=== PATIENT | female | born 1945 | race African-American/Black ===

== ENCOUNTER 2016-12-22 16:44 | Emergency (ER) | payer MEDICARE, BC ==
[~2016-12-22] VITALS: Ht 160 cm; Wt 56.7 kg
[~2016-12-22 16:44] MED LIST: ACET325T9 PO; ASPI-482 PO; FENT1PAT17 TD; GABA-586 PO; GABA600T2 PO; LORA1TAB PO; OMEP20CA9 PO; OXYC10TA32 PO; ROPI1TAB PO; SERT100T PO
--- NOTE | 2016-12-22 17:18 | PHYS DOC ---
Past Medical History Past Medical History: Arthritis, GERD, Other Additional Past Medical Histor: Multiple Myeloma,Chemotherapy, cellulitis Past Surgical History: Knee Replacement, Other Additional Past Surgical Histo: Uterine prolapse,Stem Cell Transplant in 2013, cervical spinal stenosis Alcohol Use: None Drug Use: None Adult General Chief Complaint Chief Complaint: OTHER COMPLAINTS [facility] HPI Patient is a 71 year old -[place] African female who was in her normal state of health today until the noted increased weakness with difficulty walking. She is given a history of multiple myeloma and leukemia as required chemotherapy and radiation therapy and she's had stem cell transplant 2. That was some years ago and she has been seen and managed by her oncologist at [facility]. She typically does not have any issue ambulating other than for some muscle rigidity but noted this morning during some agitation that she had difficulty walking and sitting from a recumbent position to upright position. She admits to no change in medications, no changes in vision, no dysarthria, no arthralgia, no recent joint swelling, no shortness of breath, change chest pain, URI symptoms, fever, chills, headache, or other focal neurologic deficits. She globally feels weak any symptoms began this morning around 9 AM. She denies any pain, travel outside the country, recent antibiotics, UTI symptoms or changes in bowel or bladder habits. She has a history of bladder surgery, partially directly, stem cell transplant 2, prior neck surgery. Rahul Espitia primary care doctor, Dr. Bond is her oncologist. At . Assessment and plan is generalized weakness. Patient is well outside the window for TPA consideration given her symptoms but differential diagnosis includes stroke, anemia, hypercalcemia, electrolyte abdomen, acute coronary syndrome, dehydration, UTI, sepsis, pulmonary embolism, as well as competitions from leukemia. At this point I will order a CT of the head, chest x-ray, EKG with appropriate cardiac workup, ionized calcium level,mag level, CMP, CBC, and urinalysis. Review of Systems Review of Systems Constitutional: Denies fever or chills complains of generalized weakness Eyes: Denies change in visual acuity, redness, or eye pain [] HENT: Denies nasal congestion or sore throat [] Respiratory: Denies cough or shortness of breath [] Cardiovascular: No additional information not addressed in HPI [] GI: Denies abdominal pain, nausea, vomiting, bloody stools or diarrhea [] : Denies dysuria or hematuria [] Musculoskeletal: Denies back pain or joint pain [] Integument: Denies rash or skin lesions [] Neurologic: Denies headache, she generally feels weak Endocrine: Denies polyuria or polydipsia [] Current Medications Current Medications Current Medications Medications (Trade) Dose Ordered Sig/Deonte Start Time Stop Time Status Last Admin Dose Admin Magnesium Sulfate/ Dextrose 50 ml @ 25 mls/hr 1X ONCE 12/22/16 18:45 12/22/16 20:44 DC 12/22/16 19:22 25 MLS/HR Sodium Chloride 1,000 ml @ 1,000 mls/hr Q1H 12/22/16 17:30 12/22/16 18:29 DC 12/22/16 18:10 1,000 MLS/HR Sodium Chloride (Normal Saline Flush) 10 ml QSHIFT PRN 12/22/16 17:30 12/22/16 19:22 10 ML Allergies Allergies Allergies Coded Allergies Type Severity Reaction Last Updated Verified metoclopramide HCl Allergy Unknown 10/16/13 No Physical Exam Physical Exam A she noted to have a fever as well as tachycardia of 114 approprioate per for fever normotensive without hypoxia. Noted increased respiratory rate 22. Constitutional: Well developed, well nourished, patient has extensive tardive dyskinesia but is in no distress. HENT: Normocephalic, atraumatic, bilateral external ears normal, oropharynx moist, no oral exudates, nose normal. [] Eyes: PERRLA, EOMI, conjunctiva normal, no discharge. [] Neck: Normal range of motion, no tenderness, supple, no stridor. [] Cardiovascular:Heart rate regular rhythm, no murmur [] Lungs & Thorax: Bilateral breath sounds clear to auscultation [] Abdomen: Bowel sounds normal, soft, no tenderness, no masses, no pulsatile masses. [] Skin: Warm, dry, no erythema, no rash. [] Back: No tenderness, no CVA tenderness. [] Extremities: No tenderness, no cyanosis, no clubbing, ROM intact, no edema. [] Neurologic: Alert and oriented X 3, normal motor function, normal sensory function, no focal deficits noted. Patient has decreased range of motion at the left shoulder secondary to pain not weakness. Patient's NIH stroke scale is 0 at this time. Psychologic: Affect normal, judgement normal, mood normal. [] Current Patient Data Vital Signs Vital Signs Date Time Temp Pulse Resp B/P (MAP) Pulse Ox O2 Delivery O2 Flow Rate FiO2 12/22/16 17:11 100.9 123 22 153/69 (97) 94 Room Air 100.9 Lab Values Laboratory Tests Test 12/22/16 18:00 White Blood Count 11.4 x10^3/uL (4.0-11.0) H Red Blood Count 3.63 x10^6/uL (3.50-5.40) Hemoglobin 11.5 g/dL (12.0-15.5) L Hematocrit 35.0 % (36.0-47.0) L Mean Corpuscular Volume 96 fL (79-100) Mean Corpuscular Hemoglobin 32 pg (25-35) Mean Corpuscular Hemoglobin Concent 33 g/dL (31-37) Red Cell Distribution Width 13.8 % (11.5-14.5) Platelet Count 165 x10^3/uL (140-400) Neutrophils (%) (Auto) 83 % (31-73) H Lymphocytes (%) (Auto) 13 % (24-48) L Monocytes (%) (Auto) 4 % (0-9) Eosinophils (%) (Auto) 0 % (0-3) Basophils (%) (Auto) 0 % (0-3) Neutrophils # (Auto) 9.4 x10^3uL (1.8-7.7) H Lymphocytes # (Auto) 1.4 x10^3/uL (1.0-4.8) Monocytes # (Auto) 0.5 x10^3/uL (0.0-1.1) Eosinophils # (Auto) 0.0 x10^3/uL (0.0-0.7) Basophils # (Auto) 0.0 x10^3/uL (0.0-0.2) D-Dimer (Devora) 1.70 ug/mlFEU (0.00-0.50) H Urine Collection Type U cath Urine Color Yellow Urine Clarity Clear Urine pH 6.0 Urine Specific [place] 1.015 Urine Protein Negative mg/dL (NEG-TRACE) Urine Glucose (UA) Negative mg/dL (NEG) Urine Ketones (Stick) Negative mg/dL (NEG) Urine Blood Small (NEG) Urine Nitrite Negative (NEG) Urine Bilirubin Negative (NEG) Urine Urobilinogen Dipstick 0.2 mg/dL (0.2 mg/dL) Urine Leukocyte Esterase Negative (NEG) Urine RBC 6-10 /HPF (0-2) Urine WBC 1-4 /HPF (0-4) Urine Squamous Epithelial Cells Few /LPF Urine Bacteria 0 /HPF (0-FEW) Urine Mucus Mod /LPF Sodium Level 143 mmol/L (136-145) Potassium Level 3.6 mmol/L (3.5-5.1) Chloride Level 103 mmol/L (98-107) Carbon Dioxide Level 30 mmol/L (21-32) Anion Gap 10 (6-14) Blood Urea Nitrogen 10 mg/dL (7-20) Creatinine 0.7 mg/dL (0.6-1.0) Estimated GFR (Cockcroft-Gault) 100.4 BUN/Creatinine Ratio 14 (6-20) Glucose Level 88 mg/dL (70-99) Lactic Acid Level 1.2 mmol/L (0.4-2.0) Calcium Level 8.6 mg/dL (8.5-10.1) Ionized Calcium 1.17 mmol/L (1.13-1.32) Magnesium Level 1.6 mg/dL (1.8-2.4) L Total Bilirubin 0.4 mg/dL (0.2-1.0) Aspartate Amino Transferase (AST) 16 U/L (15-37) Alanine Aminotransferase (ALT) 22 U/L (14-59) Alkaline Phosphatase 56 U/L (46-116) Troponin I Quantitative < 0.017 ng/mL (0.000-0.055) XP-Qch-K-Type Natriuretic Peptide 42 pg/mL (0-124) Total Protein 8.0 g/dL (6.4-8.2) Albumin 3.6 g/dL (3.4-5.0) Albumin/Globulin Ratio 0.8 (1.0-1.7) L Laboratory Tests 12/22/16 18:00 Laboratory Tests 12/22/16 18:00 EKG EKG [] EKG timed imaging 1716 12/22/[address] Miller demonstrates sinus tachycardia rate 114 is P waves. QRS normal limits at 67 ms patient has not severe T wave flattening in lateral leads. Patient is no ST segment or T-wave changes consistent with ischemia. Radiology/Procedures Radiology/Procedures [] [address] [place] [address] IMAGING REPORT Signed PATIENT: GERMAINE SALAZAR ACCOUNT: [id number] : 1945 LOCATION: ER AGE: 71 SEX: F EXAM STATUS: REG ER ORD. PHYSICIAN: MAGO MILLER MD REASON: weakness PROCEDURE: CT HEAD WO CONTRAST INDICATION: weakness and muscle twitching today, no priors, hx multiple myeloma COMPARISON: None. TECHNIQUE: Axial CT images obtained through the head without intravenous contrast. One or more of the following individualized dose reduction techniques were utilized for this examination: 1. Automated exposure control; 2. Adjustment of the mA and/or kV according to patient size; 3. Use of iterative reconstruction technique. FINDINGS: No intracranial hemorrhage. No midline shift. Basal cisterns patents. Ventricles and sulci are globally prominent. No acute osseous abnormality. Orbits and paranasal sinuses unremarkable. Scattered foci of low attenuation within the white matter. IMPRESSION: 1. No acute intracranial hemorrhage. 2. Scattered regions of low attenuation within the white matter. Non-specific in nature but frequently secondary to small vessel ischemic disease. Other common causes include sequela of demyelination or migraine. If there is clinical concern for acute etiology MRI could better evaluate as to whether any of these foci are acute. 3. Prominence of ventricles and sulci which is frequently secondary to age related volume loss. Electronically signed by: Mauricio Sanchez MD (12/22/2016 5:54 PM) DICTATED and SIGNED BY: MAURICIO SANCHEZ MD DATE: 12/22/16 1750 CC: MAGO MILLER MD; RAHUL ESPITIA MD ~ [facility] [address] [place] [address] IMAGING REPORT Signed PATIENT: GERMAINE SALAZAR ACCOUNT: [id number] : 1945 LOCATION: ER AGE: 71 SEX: F EXAM STATUS: REG ER ORD. PHYSICIAN: MAGO MILLER MD REASON: weakness with dimer elevation not eligable for CTA chest PROCEDURE: LUNG VENT/PERFUSION SCAN(VQ) Indication: Weakness with elevated d-dimer Technique: Static images are obtained of both lungs following inhalation of 18 mCi xenon-133 and again following IV administration of 5 mCi of 99 M technetium MAA. Comparison: Chest x-ray from same day Findings: No definite mismatched defects that are worse on the perfusion when compared to the ventilation images. Patchy defects are seen both on the ventilation and perfusion images. Some of the defects are better seen on the oblique and lateral images. Impression: 1. Low probability of pulmonary embolus. Electronically signed by: Mauricio Sanchez MD (12/22/2016 9:54 PM) DICTATED and SIGNED BY: MAURICIO SANCHEZ MD DATE: 12/22/162150 CC: MAGO MILLER MD; RAHUL ESPITIA MD ~ Course & Med Decision Making Course & Med Decision Making Pertinent Labs and Imaging studies reviewed. (See chart for details) of the course the patient's evaluation the only abdomen mildly sound on laboratory work weren't elevated d-dimer which could represent a pulmonary most given her increased respiratory rate. Respiratory rate may be at normal baseline for her as she is deconditioned concerning her medical problems. So has low mag 1.6 which may or may not contributory symptoms almost no evidence of hypokalemia or hypocalcemia. She'll be placed here in the emergency department. At this point results were explained to family at the bedside at approximately 1820. Patient feels better after fluids in the emergency. His urinalysis demonstrates mild white blood cells and bacteria are also has a few epithelial cells and given generalized weakness of patient with increased movement abnormalities I will treat empirically as UTI. [] Patient tells me that their sumptoms given during CC are improved. We reviewed labs and radiology reports with patient and any family at bedside. At approximately 1930. Still waiting for VQ scan. Patient tells me that their sumptoms given during CC are improved. We reviewed labs and radiology reports with patient and any family at bedside. Patient is a little agitated at this time waiting for VQ scan to be completed times a proximally 8:40 PM patient was offered a meal fluids and her gabapentin. [facility] note: [facility] called at of the service internal medicine PCP Dr. Omkar patino initially at 1852 Consult called back at 1900 Discussed the case I presented and they agreed with disposition home provided VQ scan is normal the patient is feeling better and able to walk with assistance according to the . At this point VQ scan is no returned at approximately 10 PM patient will be discharged home with follow-up with her primary care doctor with generalized weakness debility Impression: Generalized weakness. Probable early UTI disposition PCP follow-up in 24-48 hours for weakness with no signs of stroke precautions given. Dragon Disclaimer Dragon Disclaimer This electronic medical record was generated, in whole or in part, using a voice recognition dictation system. Departure Departure Impression: Primary Impression: Weakness Additional Impression: UTI (urinary tract infection) Disposition: HOME, SELF-CARE Condition: IMPROVED Referrals: RAHUL ESPITIA MD (PCP) Patient Instructions: Urinary Tract Infection, Weakness Additional Instructions: These follow-up with your primary care doctor next 12-24 hours if your symptoms continue. Advise that you return immediately for any increased weakness generalized fatigue fevers greater than 102.2 despite treatment or if you any question concerns. Scripts Acetaminophen (TYLENOL) 325 Mg Tablet 1-2 TAB PO QID, #60 TAB 2 Refills Prov: MAGO MILLER MD 12/22/16 Ciprofloxacin Hcl (CIPRO) 500 Mg Tablet 1 TAB PO BID, #20 TAB Prov: MAGO MILLER MD 12/22/16 Problem Qualifiers MAGO MILLER MD Dec 22, 2016 17:18
[2016-12-22] MEDS ORDERED: IV NORMAL SALINE 1000ML BAG 1,000 ML IV SCH (17:30)
[2016-12-22] MEDS ORDERED: 0.9 % SODIUM CHLORIDE 10 ML DISP.SYRIN. IV PRN (17:30)
--- NOTE | 2016-12-22 17:57 | RAD ---
INDICATION: weakness and muscle twitching today, no priors, hx multiple myeloma COMPARISON: None. TECHNIQUE: Axial CT images obtained through the head without intravenous contrast. One or more of the following individualized dose reduction techniques were utilized for this examination: 1. Automated exposure control; 2. Adjustment of the mA and/or kV according to patient size; 3. Use of iterative reconstruction technique. FINDINGS: No intracranial hemorrhage. No midline shift. Basal cisterns patents. Ventricles and sulci are globally prominent. No acute osseous abnormality. Orbits and paranasal sinuses unremarkable. Scattered foci of low attenuation within the white matter. IMPRESSION: 1. No acute intracranial hemorrhage. 2. Scattered regions of low attenuation within the white matter. Non-specific in nature but frequently secondary to small vessel ischemic disease. Other common causes include sequela of demyelination or migraine. If there is clinical concern for acute etiology MRI could better evaluate as to whether any of these foci are acute. 3. Prominence of ventricles and sulci which is frequently secondary to age related volume loss. Electronically signed by: Candido Talavera MD (12/22/2016 5:54 PM)
[2016-12-22 18:07] LABS: BASO % 0 % (0-3); EOS % 0 % (0-3); HEMOGLOBIN 11.5 g/dL (12.0-15.5); LYMPH # 1.4 x10^3/uL (1.0-4.8); LYMPH % 13 % (24-48); MEAN CORPUSCULAR HEMOGLOBIN 32 pg (25-35); MEAN CORPUSCULAR HGB CONC 33 g/dL (31-37); MEAN CORPUSCULAR VOLUME 96 fL (79-100); MONO % 4 % (0-9); NEUT % 83 % (31-73); PLATELET COUNT 165 x10^3/uL (140-400); RED BLOOD COUNT 3.63 x10^6/uL (3.50-5.40); RED CELL DISTRIBUTION WIDTH 13.8 % (11.5-14.5); WHITE BLOOD COUNT 11.4 x10^3/uL (4.0-11.0)
[2016-12-22 18:19] LABS: BILIRUBIN,URINE NEGATIVE (NEG); GLUCOSE,URINE NEGATIVE (NEG); NITRITE,URINE NEGATIVE (NEG); PROTEIN,URINE NEGATIVE (NEG-TRACE); UROBILINOGEN,URINE 0.2 mg/dL (0.2 mg/dL)
[2016-12-22 18:24] LABS: CALCIUM 8.6 mg/dL (8.5-10.1); CREATININE 0.7 mg/dL (0.6-1.0); GFR 100.4; POTASSIUM 3.6 mmol/L (3.5-5.1)
[2016-12-22 18:29] LABS: BACTERIA,URINE 0 /HPF (0-FEW)
[2016-12-22 18:30] LABS: ALBUMIN 3.6 g/dL (3.4-5.0); ALBUMIN/GLOBULIN RATIO 0.8 (1.0-1.7); MAGNESIUM 1.6 mg/dL (1.8-2.4); SQUAMOUS EPITHELIAL CELL,UR FEW /LPF; TOTAL BILIRUBIN 0.4 mg/dL (0.2-1.0)
[2016-12-22] MEDS ORDERED: MAGNESIUM SULFATE 2GM 50 ML IV ONE (18:45)
[2016-12-22 21:00] VITALS: BP 146/69
--- NOTE | 2016-12-22 21:57 | RAD ---
Indication: Weakness with elevated d-dimer Technique: Static images are obtained of both lungs following inhalation of 18 mCi xenon-133 and again following IV administration of 5 mCi of 99 M technetium MAA. Comparison: Chest x-ray from same day Findings: No definite mismatched defects that are worse on the perfusion when compared to the ventilation images. Patchy defects are seen both on the ventilation and perfusion images. Some of the defects are better seen on the oblique and lateral images. Impression: 1. Low probability of pulmonary embolus. Electronically signed by: Candido Talavera MD (12/22/2016 9:54 PM)
[2016-12-22] MEDS ORDERED: ACET325T9 PO (22:12)
[2016-12-22] MEDS ORDERED: CIPR500T94 PO (22:12)
--- NOTE | 2016-12-23 06:08 | EKG ---
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
--- NOTE | 2016-12-23 08:23 | RAD ---
Exam: AP portable chest. History: Weakness. Multiple myeloma. Comparison: 10/17/2013. Findings: The heart and mediastinal structures are within normal limits for size. Lungs are without infiltrate. No pneumothorax or pleural effusion is appreciated. Right chest port and catheter are unchanged. Right greater than left shoulder degeneration is present. S-shaped scoliosis of the thoracic and upper lumbar spine is seen. Impression: 1. No acute cardiopulmonary process.
== END 2016-12-22 22:15 | disposition home or self-care (01) ==
LOC: ER 16:44
DX: R53.1 Weakness (principal); N39.0 Urinary tract infection, site not specified; R45.1 Restlessness and agitation; M19.90 Unspecified osteoarthritis, unspecified site; Z88.8 Allergy status to other drugs, medicaments and biological substances
CPT/HCPCS: 36415; 70450; 71010; 78582; 80053; 81001; 82310; 83605; 83735; 83880; 84484; 85027; 85379; 87040; 93005; 96361; 96365; 96366; 99285; A9540; A9558; J7030; J7060; 96374

== ENCOUNTER → 2017-04-11 | Day surgery (SDC) | payer MEDICARE, BC ==
[~2017-04-11] MED LIST changes: +CIPR500T94 PO; +FENT1PAT19 TP; +GLUC100018 PO; +IV RINGERS,LACTATED 1000ML 1,000 ML IV SCH; +MULT1TAB52 PO; -OXYC10TA32 PO; +OXYC10TA45 PO; +OXYC5CAP PO; +POTA10CA2 PO; +PROPOFOL 20 ML IV ONE; +TYLENOL ARTHRITIS
--- NOTE | 2017-04-11 10:07 | PDOC1 ---
HISTORY & PHYSICAL H&P Lauren Noe [id number] 1945 03/24/2017 01:50 PM 07/24 [employer] [facility], [facility] [address] [place] [address] Ph. [phone] Patient: Lauren Noe Date of : 1945 Date: 03/24/2017 1:50 PM Visit Type: Consult This 72 year old female presents for Diarrhea and H/o colorectal polyp. History of Present Illness: 1. Diarrhea The patient describes it as loose and watery. Pertinent negatives include abdominal pain, nausea, vomiting and weight loss. Additional information: Has episodes of diarrhea. No rectal bleeding. No fever. 2. H/o colorectal polyp Prior screening: colonoscopy. Risk Factors: colon polyp 2007. Associated symptoms include diarrhea. Pertinent negatives include abdominal pain, change in bowel habits, change in stool caliber, constipation, decreased appetite, melena, nausea, rectal bleeding, vomiting, weight gain and weight loss. Additional information: No family history of colon cancer, No family history of Crohn's/colitis, No NSAID/ASA use and Had colon polyp in 2007. INTAKE COMMENTS: Intake Comments: Nurse Note: the pt is here today with complaints of diarrhea, the pt's last colonoscopy was in 2007 and she had polyps at that time. 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, bilateral 04/21/2016 Diarrhea, unspecified type 03/08/2016 Restless legs 05/27/2014 Status post total left knee replacement 05/29/2015 Chronic pain 01/30/2013 Multiple myeloma 07/20/2012 Osteoarthritis 08/22/2014 Tendinitis of left shoulder 08/25/2015 Spondylosis of lumbar region without myelopathy or radiculopathy 08/25/2015 Major depressive disorder with single episode, in partial remission 02/16/2016 Peripheral neuropathy due to chemotherapy 07/28/2015 Pain 08/11/2015 Multiple myeloma in remission 11/05/2009 Degenerative joint disease involving multiple joints 11/05/2009 Idiopathic peripheral neuropathy 11/05/2009 Periodic limb movement disorder 06/12/2012 Hyperlipidemia 10/01/2010 PAST MEDICAL/SURGICAL HISTORY (Detailed) Disease/disorder Onset Date Management Date Comments Bilateral tubal ligation cervical diskectomy 2010 Arthrocentesis of the left shoulder joint Anxiety cellulitis of finger 2010 Depression GERD Hyperlipidemia NEC/NOS hypertension multiple myeloma Multiple myeloma, in remission Osteoarthritis osteoarthritis left TKA 04/28/2015 Osteoarthrosis, Gen- Unsp Site peripheral neuropathy Unspecified idiopathic peripheral neuropathy Uterine Prolapse surgery 2013 DIAGNOSTICS HISTORY: Test Ordered Interpretation Result completed X-RAY EXAM OF PELVIS Left 04/22/2014 patient given order and will have it done at an outpatient facility. 04/22/2014 Test Ordered Ordering Comments Modifier X-RAY EXAM OF PELVIS Left 04/22/2014 Patient is postmenopausal. Medications (Active): Started Medication Directions Instruction Stopped 09/23/2015 aspirin 81 mg tablet,delayed release take 1 tablet by oral route every day 03/15/2017 fentanyl 75 mcg/hr transdermal patch apply 1 patch by transdermal route every 72 hours DX: 338.29 , 203.00. - Chronic Pain G89.29 01/04/2017 gabapentin 300 mg capsule take 1 capsule by oral route 2 times every day 03/24/2015 GLUCOSAMINE SULFATE 1 bid 03/24/2017 lorazepam 0.5 mg tablet 1 po bid prn for anxiety Must last 30 Days. 03/24/2015 multivitamin tablet take 1 tablet by ORAL route every day with food 10/28/2016 omeprazole 20 mg capsule,delayed release 1 PO DAILY 01/18/2017 oxycodone 10 mg tablet take 1 tablet by oral route TID PRN pain chronic pain G89.29 . new dose - 02/28/2017 potassium chloride ER 10 mEq capsule,extended release TAKE 2 CAPSULE BY ORAL ROUTE EVERY DAY WITH FOOD 02/16/2016 Requip 2 mg tablet 1 po in am and 2 po every hs new sig. 06/05/15 01/27/2017 sertraline 100 mg tablet TAKE 1 AND 1/2 TABLETS DAILY - TOTAL DOSE 150MG DAILY 11/22/2016 Tylenol Arthritis Pain 650 mg tablet,extended release take 1 Tablet by oral route every 4 hours as needed - NO MORE than QID 06/04/2014 Vitamin D3 2,000 unit capsule 1 daily Allergies: Ingredient Reaction Medication Name Comment METOCLOPRAMIDE HCL muscle tremor Reglan POTASSIUM CLAVULANATE Diarrhea Augmentin AMOXICILLIN TRIHYDRATE Diarrhea Augmentin REVIEW OF SYSTEMS System Neg/Pos Details Constitutional Negative Chills, fever, malaise, weight gain and weight loss. ENMT Negative Sore throat. Eyes Negative Double vision. Respiratory Negative Dyspnea and wheezing. Cardio Negative Chest pain and irregular heartbeat/palpitations. GI Positive Diarrhea, See HPI. GI Negative Abdominal pain, change in bowel habits, change in stool caliber, constipation, decreased appetite, melena, nausea, see HPI, rectal bleeding and vomiting. Negative Dysuria and hematuria. Endocrine Negative Cold intolerance and heat intolerance. Psych Negative Anxiety. Integumentary Negative Hives and rash. MS Negative Joint pain. Mark/Lymph Negative Easy bleeding and easy bruising. Allergic/Immuno Negative Food allergies. Reproductive Positive The patient is post-menopausal. VITAL SIGNS Time BP mm/Hg Pulse /min Resp /min Temp F Ht ft Ht in Ht cm Wt lb Wt kg BMI kg/ m2 BSA m2 O2 Sat% 10:55 AM 124/78 116 98.6 0.0 60.00 152.40 122.60 55.610 23.94 97 COMMENTS Time Comments 10:55 AM PCP obtained vitals today. MEASURED BY Time Measured by 10:55 AM Rosanna Hernandez PHYSICAL EXAM: Exam Findings Details Constitutional Normal Well developed. Eyes Normal Conjunctiva - Right: Normal, Left: Normal. Sclera - Right: Normal, Left: Normal. Nasopharynx Normal Lips/teeth/gums - Normal. Neck Exam Normal Inspection - Normal. Thyroid gland - Normal. Respiratory Normal Inspection - Normal. Auscultation - Normal. Cardiovascular Normal Regular rate and rhythm. No murmurs, gallops, or rubs. Vascular Normal Pulses - Carotids: Normal, Femoral: Normal, Dorsalis pedis: Normal. Abdomen Normal Inspection - Normal. Anterior palpation - No guarding. No abdominal tenderness. No hepatic enlargement. No splenic enlargement. No hernia. No Ascites. Skin Normal Inspection - Normal. Extremity Normal No edema. Psychiatric Normal Oriented to time, place, person, and situation. Appropriate mood and effect. # Detail Type Description 1. Assessment Functional diarrhea (K59.1). Patient Plan Await colonoscopy 2. Assessment History of colon polyps (Z86.010). Patient Plan schedule [place] [facility] [place] Orders Further diagnostic evaluations ordered today include(s) Colonoscopy to be performed today. She is to schedule a follow-up visit with Riky Lagos MD upon completion of work-up Electronically signed by: Riky Lagos MD 03/24/2017 11:26 AM Document generated by: Riky Lagos 03/24/2017 11:26 AM Hiwot Steve MD, Family Practice; Rahul Espitia MD Internal Medicine; Zackary Bryan MD, Internal Medicine; Yumiko Lagos MD Internal Medicine; Riky Lagos MD, Gastroenterology; Jac Osborne MD, Rheumatology, S. Rafal Farley, Physical Medicine/Rehab J. Connie BLACK ------ 04/11/17 Patient seen and examined. No change in H&P RIKY LAGOS MD Apr 11, 2017 10:07
[2017-04-11 11:45] VITALS: BP 160/70
== END | disposition home or self-care (01) ==
LOC: SURG 09:45
PROVIDERS: ATTEND Internal Medicine Gastroenterology
DX: Z09 Encounter for follow-up examination after completed treatment for conditions other than malignant neoplasm (principal); Z87.19 Personal history of other diseases of the digestive system; Z86.69 Personal history of other diseases of the nervous system and sense organs; K21.9 Gastro-esophageal reflux disease without esophagitis; F41.9 Anxiety disorder, unspecified; F32.9 Major depressive disorder, single episode, unspecified; M19.91 Primary osteoarthritis, unspecified site; Z87.39 Personal history of other diseases of the musculoskeletal system and connective tissue; Z88.1 Allergy status to other antibiotic agents; Z96.652 Presence of left artificial knee joint; Z88.8 Allergy status to other drugs, medicaments and biological substances
CPT/HCPCS: G0105; J2704

== ENCOUNTER → 2018-12-25 | Outpatient (CLI) | payer MEDICARE, BC ==
[2017-04-11 11:45] VITALS: BP 160/70
[~2018-12-25] MED LIST changes: -GABA-586 PO; +GABA300C18 PO; -GABA600T2 PO; +GABA600T7 PO; -IV RINGERS,LACTATED 1000ML 1,000 ML IV SCH; +OMEP20CA10 PO; -OMEP20CA9 PO; -OXYC10TA45 PO; +OXYC10TA46 PO; -PROPOFOL 20 ML IV ONE
--- NOTE | 2018-12-25 14:16 | RAD ---
EXAM: Left lower extremity venous Doppler. HISTORY: Left lower extremity pain/swelling. COMPARISON: None. FINDINGS: Grayscale and Doppler analysis of the left lower extremity deep venous system was performed with graded compression and augmentation. The common femoral, greater saphenous, superficial femoral, popliteal and calf veins were assessed. There is no evidence of deep venous thrombosis. IMPRESSION: 1. No evidence of deep venous thrombosis.
== END | disposition home or self-care (01) ==
LOC: US 13:41
PROVIDERS: ATTEND Internal Medicine
DX: M79.89 Other specified soft tissue disorders (principal)
CPT/HCPCS: 93971

== ENCOUNTER → 2019-03-11 | Outpatient (CLI) | payer MEDICARE, BC ==
[2017-04-11 11:45] VITALS: BP 160/70
--- NOTE | 2019-03-11 11:02 | RAD ---
PQRS Compliance statement: One or more of the following individualized dose reduction techniques were utilized for this examination: 1. Automated exposure control. 2. Adjustment of the mA and/or kV according to patient size. 3. Use of iterative reconstruction technique. Indication:Fall. Left frontal headache and neck pain. TECHNIQUE: CT head without IV contrast COMPARISON: CT head from 12/22/2016 FINDINGS: No pathologic extra-axial or intra-axial fluid collection. The ventricles and basal cisterns are within normal limits. Periventricular and deep white matter low-attenuation noted. No acute intracranial bleed. No focal loss of genao-white differentiation. Orbits are within normal limits. No large scalp hematoma. No acute calvarial fractures. Visualized paranasal sinuses and mastoid air cells are clear. IMPRESSION: 1. No acute intracranial bleed or calvarial fracture. 2. White matter changes likely secondary to chronic microvascular ischemic disease. If concern for acute ischemic stroke is high, please consider MRI brain. Indication:Neck pain. TECHNIQUE: CT of the cervical spine without IV contrast with multiplanar reformats. COMPARISON:None FINDINGS: There is loss of normal cervical lordosis. This could be due to muscle spasm, positioning or postoperative changes. Status post anterior fusion at C3-C4. Atlantoaxial joint interval is preserved. No compression deformity. Facet joints are in normal anatomic alignment. Multilevel intervertebral disc space narrowing seen with endplate irregularities and osteophyte formation. No acute fractures. Noncontrast appearance of the visualized neck soft tissue is within normal limits. Clear lung apices. IMPRESSION: 1. No acute fractures. 2. Advanced multilevel degenerative disc disease with associated facet arthropathy. Electronically signed by: Tom Lagos DO (03/11/2019 11:00 AM) [facility]
== END | disposition home or self-care (01) ==
LOC: CT 10:22
PROVIDERS: ATTEND Internal Medicine
DX: I67.82 Cerebral ischemia (principal)
CPT/HCPCS: 70450; 72125

== ENCOUNTER 2019-05-16 17:40 | Emergency (ER) | payer MEDICARE, BC ==
[~2019-05-16] VITALS: Ht 157.5 cm; Wt 61.2 kg
[2019-05-16] MEDS ORDERED: fentaNYL PF VIAL 100 MCG/2 ML VIAL IVP ONE (18:45)
[2019-05-16 18:59] LABS: BASO % 1 % (0-3); EOS % 0 % (0-3); HEMATOCRIT 36.9 % (36.0-47.0); HEMOGLOBIN 12.3 g/dL (12.0-15.5); LYMPH # 1.4 x10^3/uL (1.0-4.8); LYMPH % 35 % (24-48); MEAN CORPUSCULAR HEMOGLOBIN 33 pg (25-35); MEAN CORPUSCULAR HGB CONC 33 g/dL (31-37); MEAN CORPUSCULAR VOLUME 100 fL (79-100); MONO # 0.3 x10^3/uL (0.0-1.1); MONO % 6 % (0-9); NEUT # 2.4 x10^3/uL (1.8-7.7); NEUT % 58 % (31-73); PLATELET COUNT 148 x10^3/uL (140-400); RED BLOOD COUNT 3.68 x10^6/uL (3.50-5.40); RED CELL DISTRIBUTION WIDTH 13.3 % (11.5-14.5); WHITE BLOOD COUNT 4.2 x10^3/uL (4.0-11.0)
[2019-05-16 19:09] LABS: CREATININE 0.6 mg/dL (0.6-1.0); GFR 118.9; POTASSIUM 3.3 mmol/L (3.5-5.1)
[2019-05-16 19:10] LABS: PROTHROMBIN TIME PATIENT 12.5 SEC (11.7-14.0)
[2019-05-16 19:24] LABS: ALBUMIN 3.7 g/dL (3.4-5.0); ALBUMIN/GLOBULIN RATIO 1.1 (1.0-1.7); MAGNESIUM 1.8 mg/dL (1.8-2.4); TOTAL BILIRUBIN 0.4 mg/dL (0.2-1.0); TOTAL PROTEIN 7.1 g/dL (6.4-8.2)
[2019-05-16] MEDS ORDERED: IV NORMAL SALINE 1000ML BAG 1,000 ML IV ONE (19:30)
--- NOTE | 2019-05-16 19:49 | RAD ---
Exam: CT head and cervical spine INDICATION: Fall at home TECHNIQUE: Sequential axial images through the head and cervical spine were obtained without the administration of IV contrast. Comparisons: None FINDINGS: Head: No focal parenchymal lesion or hemorrhage is identified. There is no midline shift or sulcal effacement. Patchy hypodensity within the periventricular white matter, likely representing chronic small vessel ischemic change, similar when compared to prior exam. No acute vascular territory infarction is identified. Gould-white distinction is preserved. The ventricular system is within normal limits without compression hydrocephalus. The basal cisterns are well maintained. The visualized portions of the paranasal sinuses and mastoid air cells are well-pneumatized. No acute fractures. Cervical spine: There is straightening of the cervical spine. Vertebral body heights are well-maintained. Grade 1 anterolisthesis of C2 on C3 and C7 on T1. Fracture through the cervical spine is not identified. There is multilevel spondylotic change in the cervical spine with degenerative disc disease greatest at C3-C4 C5-C6 and C6-C7. Visualized paraspinal soft tissues are unremarkable. IMPRESSION: 1. No acute intracranial abnormality. 2. Negative CT C-spine for acute traumatic injury. Exposure: One or more of the following in the visualized dose reduction techniques were utilized for this examination: 1. Automated exposure control 2. Adjustment of the MA and/or KV according to patient size Use of iterative of reconstructive technique Electronically signed by: Lesli Burr MD (05/16/2019 7:46 PM) [facility]
--- NOTE | 2019-05-16 20:31 | RAD ---
AP portable chest radiograph 05/16/2019 Clinical History: Weakness. Fall. An AP erect portable digital radiograph of the chest was obtained. Comparison study is dated 07/24/2016. A right internal jugular Pnjgkw-w-Tisx type catheter is unchanged in position. The cardiac silhouette is mildly enlarged. The thoracic aorta is tortuous. Atherosclerotic calcification of the thoracic aorta is seen. The degree of inspiration is shallow. No area of consolidation is seen. No pneumothorax or pleural effusion is noted. Degenerative changes are seen involving the thoracic spine and both shoulders. The osseous structures are grossly intact. Impression: No acute abnormality is seen. Electronically signed by: Nelson Sarmiento MD (05/16/2019 8:28 PM) [facility]
[2019-05-16 20:57] LABS: BILIRUBIN,URINE NEGATIVE (NEG); CLARITY,URINE CLEAR; COLOR,URINE YELLOW; NITRITE,URINE NEGATIVE (NEG); PROTEIN,URINE NEGATIVE (NEG-TRACE); UROBILINOGEN,URINE 0.2 mg/dL (0.2 mg/dL)
[2019-05-16 21:03] LABS: SQUAMOUS EPITHELIAL CELL,UR MOD /LPF
[2019-05-16 21:05] LABS: BACTERIA,URINE 0 /HPF (0-FEW)
[2019-05-16 21:13] VITALS: BP 134/58
[2019-05-16] MEDS ORDERED: CIPR250T30 PO (21:19)
--- NOTE | 2019-05-16 21:19 | PHYS DOC ---
Past Medical History Past Medical History: Arthritis, GERD, Other Additional Past Medical Histor: Multiple Myeloma,Chemotherapy, cellulitis Past Surgical History: Knee Replacement, Other Additional Past Surgical Histo: Uterine prolapse,Stem Cell Transplant in 2013, cervical spinal stenosis Alcohol Use: None Drug Use: None Adult General Chief Complaint Chief Complaint: MECHANICAL FALL HPI HPI Patient is a 74 year old female who presents with complaining of a fall. Patient states she lost her balance and had a fall inside of her home and hit her head without loss of consciousness. Patient had another fall 2 weeks ago and currently taking physical therapy treatment for balance problem that is going on for several weeks. X-ray, fever and chills, neck pain, nausea and vomiting. Patient currently using a walker. Patient takes fentanyl patch and oxycodone for multiple myeloma pain during of headache and rated her pain 6/10. Review of Systems Review of Systems Constitutional: Denies fever or chills [] Eyes: Denies change in visual acuity, redness, or eye pain [] HENT: Denies nasal congestion or sore throat [] Respiratory: Denies cough or shortness of breath [] Cardiovascular: No additional information not addressed in HPI [] GI: Denies abdominal pain, nausea, vomiting, bloody stools or diarrhea [] : Denies dysuria or hematuria [] Musculoskeletal: Denies back pain or joint pain [] Integument: Denies rash or skin lesions [] Neurologic: Denies focal weakness or sensory changes, reports [] Endocrine: Denies polyuria or polydipsia [] All other systems were reviewed and found to be within normal limits, except as documented in this note. Current Medications Current Medications Current Medications Medications (Trade) Dose Ordered Sig/Deonte Start Time Stop Time Status Last Admin Dose Admin Fentanyl Citrate (Fentanyl 2ml Vial) 50 mcg 1X ONCE 05/16/19 18:45 05/16/19 18:46 DC 05/16/19 19:07 50 MCG Heparin Sodium (Porcine) (Hep Lock Adult) 500 unit 1X ONCE 05/16/19 21:45 05/16/19 21:46 Potassium Chloride (Klor-Con) 40 meq 1X ONCE 05/16/19 21:30 05/16/19 21:31 DC Sodium Chloride 1,000 ml @ 1,000 mls/hr 1X ONCE 05/16/19 19:30 05/16/19 20:29 DC 05/16/19 19:59 1,000 MLS/HR Allergies Allergies Allergies Coded Allergies Type Severity Reaction Last Updated Verified amoxicillin Allergy Intermediate 04/11/17 Yes clavulanic acid Allergy Intermediate 04/11/17 Yes metoclopramide HCl Adverse Reaction Intermediate muscle tremors 05/16/19 No Physical Exam Physical Exam Constitutional: Well developed, well nourished, mild distress, non-toxic appearance. [] HENT: Normocephalic, atraumatic. Eyes: PERRLA, EOMI, conjunctiva normal, no discharge. [] Neck: Normal range of motion, no tenderness, supple, no stridor. [] Cardiovascular:Heart rate regular rhythm, no murmur [] Lungs & Thorax: Bilateral breath sounds clear to auscultation [] Abdomen: Bowel sounds normal, soft, no tenderness, no masses, no pulsatile masses. [] Skin: Warm, dry, no erythema, no rash. [] Back: No tenderness, no CVA tenderness. [] Extremities: No tenderness, no cyanosis, no clubbing, ROM intact, no edema. [] Neurologic: Alert and oriented X 3, no focal deficits noted. [] Psychologic: Affect normal, judgement normal, mood normal. [] Current Patient Data Vital Signs Vital Signs Date Time Temp Pulse Resp B/P (MAP) Pulse Ox O2 Delivery O2 Flow Rate FiO2 05/16/19 19:30 Room Air 05/16/19 19:07 16 97 05/16/19 18:11 98.4 82 153/69 (97) 98.4 Lab Values Laboratory Tests Test 05/16/19 18:48 05/16/19 20:47 White Blood Count 4.2 x10^3/uL (4.0-11.0) Red Blood Count 3.68 x10^6/uL (3.50-5.40) Hemoglobin 12.3 g/dL (12.0-15.5) Hematocrit 36.9 % (36.0-47.0) Mean Corpuscular Volume 100 fL (79-100) Mean Corpuscular Hemoglobin 33 pg (25-35) Mean Corpuscular Hemoglobin Concent 33 g/dL (31-37) Red Cell Distribution Width 13.3 % (11.5-14.5) Platelet Count 148 x10^3/uL (140-400) Neutrophils (%) (Auto) 58 % (31-73) Lymphocytes (%) (Auto) 35 % (24-48) Monocytes (%) (Auto) 6 % (0-9) Eosinophils (%) (Auto) 0 % (0-3) Basophils (%) (Auto) 1 % (0-3) Neutrophils # (Auto) 2.4 x10^3/uL (1.8-7.7) Lymphocytes # (Auto) 1.4 x10^3/uL (1.0-4.8) Monocytes # (Auto) 0.3 x10^3/uL (0.0-1.1) Eosinophils # (Auto) 0.0 x10^3/uL (0.0-0.7) Basophils # (Auto) 0.0 x10^3/uL (0.0-0.2) Prothrombin Time 12.5 SEC (11.7-14.0) Prothrombin Time INR 1.0 (0.8-1.1) Sodium Level 142 mmol/L (136-145) Potassium Level 3.3 mmol/L (3.5-5.1) L Chloride Level 105 mmol/L (98-107) Carbon Dioxide Level 30 mmol/L (21-32) Anion Gap 7 (6-14) Blood Urea Nitrogen 8 mg/dL (7-20) Creatinine 0.6 mg/dL (0.6-1.0) Estimated GFR (Cockcroft-Gault) 118.9 BUN/Creatinine Ratio 13 (6-20) Glucose Level 113 mg/dL (70-99) H Lactic Acid Level 0.7 mmol/L (0.4-2.0) Calcium Level 9.0 mg/dL (8.5-10.1) Magnesium Level 1.8 mg/dL (1.8-2.4) Total Bilirubin 0.4 mg/dL (0.2-1.0) Aspartate Amino Transferase (AST) 19 U/L (15-37) Alanine Aminotransferase (ALT) 22 U/L (14-59) Alkaline Phosphatase 66 U/L (46-116) Creatine Kinase 219 U/L (26-192) H Troponin I Quantitative < 0.017 ng/mL (0.000-0.055) IO-Qiz-H-Type Natriuretic Peptide 299 pg/mL (0-124) H Total Protein 7.1 g/dL (6.4-8.2) Albumin 3.7 g/dL (3.4-5.0) Albumin/Globulin Ratio 1.1 (1.0-1.7) Urine Collection Type Unknown Urine Color Yellow Urine Clarity Clear Urine pH 7.0 Urine Specific [place] 1.015 Urine Protein Negative mg/dL (NEG-TRACE) Urine Glucose (UA) Negative mg/dL (NEG) Urine Ketones (Stick) Negative mg/dL (NEG) Urine Blood Negative (NEG) Urine Nitrite Negative (NEG) Urine Bilirubin Negative (NEG) Urine Urobilinogen Dipstick 0.2 mg/dL (0.2 mg/dL) Urine Leukocyte Esterase Moderate (NEG) Urine RBC 3-5 /HPF (0-2) Urine WBC 5-10 /HPF (0-4) Urine Squamous Epithelial Cells Mod /LPF Urine Bacteria 0 /HPF (0-FEW) Urine Mucus Slight /LPF Laboratory Tests 05/16/19 18:48 Laboratory Tests 05/16/19 18:48 EKG EKG EKG interpreted by me. EKG at 1913 showed normal sinus rhythm at rate of 73, leftward axis, T-wave abnormalities in anteroseptal leads, no acute ST and T-wa ve lavation. Radiology/Procedures Radiology/Procedures [][facility] [address] [place] [address] IMAGING REPORT Signed PATIENT: GERMAINE SALAZAR ACCOUNT: [id number] : 1945 LOCATION: ER AGE: 74 SEX: F EXAM STATUS: REG ER ORD. PHYSICIAN: ANIKET LANGFORD MD REASON: weakness and fall PROCEDURE: PORTABLE CHEST 1V AP portable chest radiograph 05/16/2019 Clinical History: Weakness. Fall. An AP erect portable digital radiograph of the chest was obtained. Comparison study is dated 07/24/2016. A right internal jugular Adzlad-m-Bxee type catheter is unchanged in position. The cardiac silhouette is mildly enlarged. The thoracic aorta is tortuous. Atherosclerotic calcification of the thoracic aorta is seen. The degree of inspiration is shallow. No area of consolidation is seen. No pneumothorax or pleural effusion is noted. Degenerative changes are seen involving the thoracic spine and both shoulders. The osseous structures are grossly intact. Impression: No acute abnormality is seen. Electronically signed by: Nelson Sarmiento MD (05/16/2019 8:28 PM) [facility] DICTATED and SIGNED BY: NELSON SARMIENTO MD DATE: 05/16/192027 [facility] [address] [place] [address] IMAGING REPORT Signed PATIENT: GERMAINE SALAZAR ACCOUNT: [id number] : 1945 LOCATION: ER AGE: 74 SEX: F EXAM STATUS: REG ER ORD. PHYSICIAN: ANIKET LANGFORD MD REASON: fall at home, history of multiple myeloma PROCEDURE: CT HEAD AND CERVICAL SPINE WO Exam: CT head and cervical spine INDICATION: Fall at home TECHNIQUE: Sequential axial images through the head and cervical spine were obtained without the administration of IV contrast. Comparisons: None FINDINGS: Head: No focal parenchymal lesion or hemorrhage is identified. There is no midline shift or sulcal effacement. Patchy hypodensity within the periventricular white matter, likely representing chronic small vessel ischemic change, similar when compared to prior exam. No acute vascular territory infarction is identified. Gould-white distinction is preserved. The ventricular system is within normal limits without compression hydrocephalus. The basal cisterns are well maintained. The visualized portions of the paranasal sinuses and mastoid air cells are well-pneumatized. No acute fractures. Cervical spine: There is straightening of the cervical spine. Vertebral body heights are well-maintained. Grade 1 anterolisthesis of C2 on C3 and C7 on T1. Fracture through the cervical spine is not identified. There is multilevel spondylotic change in the cervical spine with degenerative disc disease greatest at C3-C4 C5-C6 and C6-C7. Visualized paraspinal soft tissues are unremarkable. IMPRESSION: 1. No acute intracranial abnormality. 2. Negative CT C-spine for acute traumatic injury. Exposure: One or more of the following in the visualized dose reduction techniques were utilized for this examination: 1. Automated exposure control 2. Adjustment of the MA and/or KV according to patient size Use of iterative of reconstructive technique Electronically signed by: Lesli Sanchez MD (05/16/2019 7:46 PM) [facility] DICTATED and SIGNED BY: LESLI SANCHEZ MD DATE: 05/16/191945 Course & Med Decision Making Course & Med Decision Making Pertinent Labs and Imaging studies reviewed. (See chart for details) Evaluation of patient in ER showed 74-year-old female patient with history of multiple myeloma and fentanyl patch and Percocet and history of bunions problem for several weeks and physical therapy brought in by her because of a fall and injury to her head. Patient was alert and oriented. Better after IV fentanyl. Potassium was 3.3 and patient states she is supposed respiratory symptoms but doesn't take her medication all the time because large size of the medication. Patient also had UTI. Lactic acid and white count was normal. CT head and chest x-ray was unremarkable. Patient advised to increase fluid intake and follow up with physical therapy. Patient ambulated with walking like her usual condition according to her . Dragon Disclaimer Dragon Disclaimer This electronic medical record was generated, in whole or in part, using a voice recognition dictation system. Departure Departure Impression: Primary Impression: Fall from standing Additional Impressions: Balance problem Urinary tract infection Hypokalemia History of multiple myeloma Disposition: 01 HOME, SELF-CARE (at 12/08/16) Condition: IMPROVED Referrals: NEMO RICARDO MD (PCP) Patient Instructions: Fall Prevention and Home Safety, Hypokalemia, Urinary Tract Infection Additional Instructions: Drink plenty of liquids Follow-up with your primary care physician in 3-5 days Return to ER if not getting better Continue with your physical therapist for balance problem Scripts Ciprofloxacin Hcl (CIPRO) 250 Mg Tablet 1 TAB PO BID for infection, #14 TAB Prov: ANIKET LANGFORD MD 05/16/19 Problem Qualifiers Primary Impression: Fall from standing Encounter type: initial encounter Qualified Codes: W19.XXXA - Unspecified fall, initial encounter Additional Impressions: Urinary tract infection Urinary tract infection type: site unspecified Hematuria presence: without hematuria Qualified Codes: N39.0 - Urinary tract infection, site not specified ANIKET LANGFORD MD May 16, 2019 21:19
[2019-05-16] MEDS ORDERED: POTASSIUM CHLORIDE 20 MEQ TABLET.ER. PO ONE (21:30)
[2019-05-16] MEDS ORDERED: HEPARIN PF 500 UNIT/5 ML DISP.SYRIN. IVP ONE (21:45)
--- NOTE | 2019-05-17 07:46 | EKG ---
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
== END 2019-05-16 21:52 | disposition home or self-care (01) ==
LOC: ER 17:40
DX: N39.0 Urinary tract infection, site not specified (principal); E87.6 Hypokalemia; C90.00 Multiple myeloma not having achieved remission; R26.89 Other abnormalities of gait and mobility; R11.2 Nausea with vomiting, unspecified; R50.9 Fever, unspecified; M19.90 Unspecified osteoarthritis, unspecified site; K21.9 Gastro-esophageal reflux disease without esophagitis; Z96.659 Presence of unspecified artificial knee joint; Z88.8 Allergy status to other drugs, medicaments and biological substances; Z88.1 Allergy status to other antibiotic agents; W18.39XA Other fall on same level, initial encounter; Y93.89 Activity, other specified; Y92.89 Other specified places as the place of occurrence of the external cause; Y99.8 Other external cause status
CPT/HCPCS: 36415; 70450; 71045; 72125; 80053; 81001; 82550; 83605; 83735; 83880; 84484; 85025; 85610; 87086; 93005; 96361; 96374; 96375; 99285; J3010; J7030; 87186

== ENCOUNTER 2021-03-14 14:07 | Emergency (ER) | payer MEDICARE, BC ==
[~2021-03-14] VITALS: Ht 152.4 cm; Wt 61.3 kg
[~2021-03-14 14:07] MED LIST changes: +CIPR250T30 PO; +MULT-445 PO; -MULT1TAB52 PO; -OMEP20CA10 PO; +OMEP20CA16 PO
[2021-03-14 14:20] VITALS: BP 146/64
[2021-03-14 14:44] LABS: BASO % 1 % (0-3); EOS # 0.1 x10^3/uL (0.0-0.7); EOS % 2 % (0-3); HEMATOCRIT 32.6 % (36.0-47.0); HEMOGLOBIN 10.9 g/dL (12.0-15.5); LYMPH # 1.2 x10^3/uL (1.0-4.8); LYMPH % 34 % (24-48); MEAN CORPUSCULAR HEMOGLOBIN 33 pg (25-35); MEAN CORPUSCULAR HGB CONC 34 g/dL (31-37); MEAN CORPUSCULAR VOLUME 97 fL (79-100); MONO # 0.4 x10^3/uL (0.0-1.1); MONO % 11 % (0-9); NEUT # 1.8 x10^3/uL (1.8-7.7); NEUT % 53 % (31-73); PLATELET COUNT 210 x10^3/uL (140-400); RED BLOOD COUNT 3.34 x10^6/uL (3.50-5.40); RED CELL DISTRIBUTION WIDTH 16.2 % (11.5-14.5); WHITE BLOOD COUNT 3.5 x10^3/uL (4.0-11.0)
--- NOTE | 2021-03-14 14:54 | RAD ---
XR CHEST 1V History: Reason: near-syncope / Spl. Instructions: / History: Comparison: May 16, 2019 Findings: Patchy bibasilar opacities, left than right. No pleural effusion. No pneumothorax. Normal heart size. Stable right chest wall port. Advanced glenohumeral DJD, right greater than left. Impression: 1. Mild left greater than right patchy bibasilar opacities, may represent atelectasis or developing consolidations Electronically signed by: Valentin Harden DO (03/14/2021 2:51 PM) [id number]
[2021-03-14 14:57] LABS: CALCIUM 9.1 mg/dL (8.5-10.1); CREATININE 0.7 mg/dL (0.6-1.0); POTASSIUM 3.4 mmol/L (3.5-5.1)
[2021-03-14 14:58] LABS: ALBUMIN 3.3 g/dL (3.4-5.0); ALBUMIN/GLOBULIN RATIO 0.8 (1.0-1.7); MAGNESIUM 1.6 mg/dL (1.8-2.4); TOTAL BILIRUBIN 0.5 mg/dL (0.2-1.0); TOTAL PROTEIN 7.2 g/dL (6.4-8.2)
--- NOTE | 2021-03-14 15:07 | PHYS DOC ---
Past Medical History Past Medical History: Arthritis, GERD, Other Additional Past Medical Histor: Multiple Myeloma,Chemotherapy, cellulitis. Past Surgical History: Knee Replacement, Other Additional Past Surgical Histo: Uterine prolapse,Stem Cell Transplant in 2013, cervical spinal stenosis Smoking Status: Never Smoker Alcohol Use: None Drug Use: None General Adult EDM: Chief Complaint: NEAR SYNCOPE HPI: HPI: 76-year-old -[place] female past medical history of multiple myeloma, follows at , presents to the ED with her , (patient consents to his/her/their knowledge and involvement in pts' medical care), concern for " I was acting fidgety and not walking well at all," 's lasted for approximately 10 to 20 minutes and symptoms resolved prior to ED arrival. Patient states she had similar symptoms approximately 1-2 weeks ago that they attempted to be seen at emergency department but left due to long ED wait time. Patients' pcp is Dr. Ricardo. Patient is taking Pomalyst every 21 days and has 1 week off. Patient states she felt really nervous when these sxs happened and she was talking quickly, "I know I have some anxiety that I need to talk to Omkar about." States her arms were "fidgeting," no sxs in her legs. Has a h/o neuropathy but takes no antipsychotics. Patient denies any associated dizziness, vertiginous sensation, chest pain, dyspnea, exertional dyspnea, saddle anesthesia, back pain, night sweats, urinary or bowel retention or incontinence, unintended weight loss or arm/leg weakness. Review of Systems: Review of Systems: Constitutional: Denies fever or chills. [] Eyes: Denies change in visual acuity. [] HENT: Denies nasal congestion or sore throat. [] Respiratory: Denies cough or shortness of breath. [] Cardiovascular: Denies chest pain or edema. [] GI: Denies nausea, vomiting, bloody stools or diarrhea. [] : Denies dysuria or hematuria Musculoskeletal: Denies back pain or joint pain. [] Integument: Denies rash or diaphoresis Neurologic: Denies headache, focal weakness or sensory changes. [] Endocrine: Denies polyuria or polydipsia. [] Lymphatic: Denies swollen glands. [] Psychiatric: Denies depression or suicidal thoughts Heart Score: C/O Chest Pain: No Risk Factors: Risk Factors: DM, Current or recent (<one month) smoker, HTN, HLP, family history of CAD, obesity. Risk Scores: Score 0 - 3: 2.5% MACE over next 6 weeks - Discharge Home Score 4 - 6: 20.3% MACE over next 6 weeks - Admit for Clinical Observation Score 7 - 10: 72.7% MACE over next 6 weeks - Early Invasive Strategies Allergies: Allergies: Allergies Coded Allergies Type Severity Reaction Last Updated Verified amoxicillin Allergy Intermediate 04/11/17 Yes clavulanic acid Allergy Intermediate 04/11/17 Yes metoclopramide HCl Adverse Reaction Intermediate muscle tremors 05/16/19 No Physical Exam: PE: Constitutional: Well developed, well nourished, no acute distress, non-toxic appearance. HENT: Normocephalic, atraumatic, Eyes: EOMI, conjunctiva normal, no discharge. Neck: Normal range of motion, supple, Cardiovascular: S1/2 present, regular rhythm Lungs & Thorax: Speaking in full sentences, bilateral equal chest rise, no tachypnea or increased work of breathing Abdomen: soft, no tenderness, Skin: Warm, dry, no erythema, no rash. [] Back: No tenderness, no CVA tenderness. [] Extremities: No tenderness, no cyanosis, no lower extremity edema Neurologic: NIHSS 0 Alert and oriented X 3, normal motor function, normal sensory function, no focal deficits noted. [] Psychologic: Affect normal, judgement normal, mood normal. [] Current Patient Data: Labs: Laboratory Tests Test 03/14/21 14:35 White Blood Count 3.5 x10^3/uL (4.0-11.0) L Red Blood Count 3.34 x10^6/uL (3.50-5.40) L Hemoglobin 10.9 g/dL (12.0-15.5) L Hematocrit 32.6 % (36.0-47.0) L Mean Corpuscular Volume 97 fL (79-100) Mean Corpuscular Hemoglobin 33 pg (25-35) Mean Corpuscular Hemoglobin Concent 34 g/dL (31-37) Red Cell Distribution Width 16.2 % (11.5-14.5) H Platelet Count 210 x10^3/uL (140-400) Neutrophils (%) (Auto) 53 % (31-73) Lymphocytes (%) (Auto) 34 % (24-48) Monocytes (%) (Auto) 11 % (0-9) H Eosinophils (%) (Auto) 2 % (0-3) Basophils (%) (Auto) 1 % (0-3) Neutrophils # (Auto) 1.8 x10^3/uL (1.8-7.7) Lymphocytes # (Auto) 1.2 x10^3/uL (1.0-4.8) Monocytes # (Auto) 0.4 x10^3/uL (0.0-1.1) Eosinophils # (Auto) 0.1 x10^3/uL (0.0-0.7) Basophils # (Auto) 0.0 x10^3/uL (0.0-0.2) Sodium Level 144 mmol/L (136-145) Potassium Level 3.4 mmol/L (3.5-5.1) L Chloride Level 103 mmol/L (98-107) Carbon Dioxide Level 30 mmol/L (21-32) Anion Gap 11 (6-14) Blood Urea Nitrogen 8 mg/dL (7-20) Creatinine 0.7 mg/dL (0.6-1.0) Estimated GFR (Cockcroft-Gault) 99.0 BUN/Creatinine Ratio 11 (6-20) Glucose Level 92 mg/dL (70-99) Calcium Level 9.1 mg/dL (8.5-10.1) Magnesium Level 1.6 mg/dL (1.8-2.4) L Total Bilirubin 0.5 mg/dL (0.2-1.0) Aspartate Amino Transferase (AST) 12 U/L (15-37) L Alanine Aminotransferase (ALT) 25 U/L (14-59) Alkaline Phosphatase 68 U/L (46-116) Total Protein 7.2 g/dL (6.4-8.2) Albumin 3.3 g/dL (3.4-5.0) L Albumin/Globulin Ratio 0.8 (1.0-1.7) L Lipase 99 U/L (73-393) Laboratory Tests 03/14/21 14:35 Laboratory Tests 03/14/21 14:35 Vital Signs: Vital Signs Date Time Temp Pulse Resp B/P (MAP) Pulse Ox O2 Delivery O2 Flow Rate FiO2 03/14/21 14:20 99.0 98 16 146/64 (97) 97 Room Air 99.0 EKG: EKG: Sinus rhythm 84 bpm, no axis deviation, normal intervals, no obvious T wave inversions, ST elevations or ST depressions Radiology/Procedures: Radiology/Procedures: IMAGING REPORT Signed PATIENT: GERMAINE SALAZAR ACCOUNT: [id number] : 1945 LOCATION: ER AGE: 76 SEX: F EXAM STATUS: PRE ER ORD. PHYSICIAN: RODRIGO CASTELLON DO REASON: near-syncope PROCEDURE: PORTABLE CHEST 1V XR CHEST 1V History: Reason: near-syncope / Spl. Instructions: / History: Comparison: May 16, 2019 Findings: Patchy bibasilar opacities, left than right. No pleural effusion. No pne umothorax. Normal heart size. Stable right chest wall port. Advanced glenohumeral DJD, right greater than left. Impression: 1. Mild left greater than right patchy bibasilar opacities, may represent atelectasis or developing consolidations Electronically signed by: Valentin Harden DO (03/14/2021 2:51 PM) [id number] DICTATED and SIGNED BY: VALENTIN HARDEN DO DATE: 03/14/21 [id number] 0 Course & Med Decision Making: Course & Med Decision Making Pertinent Labs and Imaging studies reviewed. (See chart for details) Concern for abnormal movements of the upper extremity in the setting of anxiety and multiple myeloma. Labs show some mild anemia with no prior for comparison. Normal calcium. Patient with no neurologic symptoms indicating spinal cord compression. Patient has no focal neurologic deficits. Will do trial of hydr oxyzine if symptoms should recur. Will discharge home with strict ED return precautions were given for neurologic deficits including saddle anesthesia, incontinence, focal sensory or motor weakness, speech changes or facial droop. Encouraged urgent outpatient follow-up with PMD and neurology for definitive management of multiple myeloma. Life-threatening processes were considered but are low suspicion at this time, given history, physical exam and ED workup. Pt was educated on all prescription medications and adverse effects. All patient's questions were answered and pt was stable at time of discharge. Life/limb-threatening differential includes but is not limited to, end organ damage/sepsis, trauma/abuse/neglect, neurologic deficit including CVA/TIA, alcohol/drug ingestion, toxidrome, suicidal/homicidal ideations plans or attempts, psychosis or mental illness resulting in self neglect and inability to care for self. I have spoken with the patient and/or caregivers. I explained the patient's condition, diagnoses and treatment plan based on the information available to me at this time. I have answered the patient and/or caregiver's questions and addressed any concerns. The patient and/or caregivers have a good understanding of patient's diagnosis, condition and treatment plan as can be expected at this point. Vital signs have been stable. Patient's condition is stable and appropriate for discharge from the emergency department. Patient will pursue further outpatient evaluation with primary care physician or other designated or consulting physician as outlined in the discharge instructions. The patient and/or caregivers are agreeable to this plan of care and follow-up instructions have been explained in detail. The patient and/or caregivers have received these instructions in written form and have expressed an understanding of the discharge instructions. The patient and/or caregivers are aware that any significant change of condition or worsening of symptoms should prompt immediate return to this or the closest emergency department or call to 1. Gerardo Disclaimer: Gerardo Disclaimer: This electronic medical record was generated, in whole or in part, using a voice recognition dictation system. Departure Departure Impression: Primary Impression: Abnormal movements Additional Impression: Anxiety Disposition: 01 HOME / SELF CARE / HOMELESS Condition: STABLE Referrals: NEMO RICARDO MD (PCP) Follow-up with your primary care physician in 24 to 48 hours OR FOLLOW UP WITH FAMILY MEDICINE: [address] [facility], [address] [place] [address] Patient Instructions: Anxiety and Panic Attacks, Multiple Myeloma Additional Instructions: FOLLOW UP WITH NEUROLOGY: FOR DEFINITIVE MANAGEMENT of multiple myeloma [facility] [address] [place], [address] [place] [address] EMERGENCY DEPARTMENT GENERAL DISCHARGE INSTRUCTIONS Thank you for coming to [facility] Emergency Department (ED) today and trusting us with you care. We trust that you had a positive experience in our Emergency Department. If you wish to speak to the department management, you may call the Director at [phone]. YOUR FOLLOW UP INSTRUCTIONS ARE FOLLOWS: 1. Do you have a private Doctor? If you do not have a private doctor, please ask for a resource list of physicians or clinics that may be able to assist you with follow up care. 2. The Emergency Physicain has interpreted your x-rays. The X-Ray specialist will also review them. If there is a change in the findings, you will be notified in 48 hours when at all possible. 3. A lab test or culture has been done, your results will be reviewed and you will be notified if you need a change in treatment. ADDITIONAL INSTRUCTIONS AND INFORMATION: 1. Your care today has been supervised by a physician who is specially trained in emergency care. Many problems require more than one evaluation for a complete diagnosis and treatment. We recommend that you schedule your follow up appointment as recommended to ensure complete treatment of you illness or injury. If you are unable to obtain follow up care and continue to have a problem, or if your condition worsens, we recommend that you return to the ED. 2. We are not able to safely determine your condition over the phone nor are we able to give sound medical advice over the phone. For these safety reasons, if you call for medical advice we will ask you to come to the ED for further evaluation. 3. If you have any questions regarding these discharge instructions please call the ED at [phone]. SAFETY INFORMATION: In the interest of safety, wellness, and injury prevention; we encourage you to wear your sealbelt, if you smoke; quite smoking, and we encourage family to use a protective helmet for bicycling and other sporting events that present an increased risk for head injury. IF YOUR SYMPTOMS WORSEN OR NEW SYMPTOMS DEVELOP, OR YOU HAVE CONCERNS ABOUT YOUR CONDITION; OR IF YOUR CONDITION WORSENS WHILE YOU ARE WAITING FOR YOUR FOLLOW UP APPOINTMENT; EITHER CONTACT YOUR PRIMARY CARE DOCTOR, THE PHYSICIAN WHOSE NAME AND NUMBER YOU WERE GIVEN, OR RETURN TO THE ED IMMEDIATELY. Scripts Hydroxyzine Hcl (HYDROXYZINE HCL) 25 Mg Tablet 1 TAB PO TID PRN for itching, #20 TAB Prov: RODRIGO CASTELLON DO 03/14/21 RODRIGO CASTELLON DO Mar 14, 2021 15:06
--- NOTE | 2021-03-14 15:42 | RAD ---
CT Head W/O Contrast: History: Reason: ams h/o mm / Spl. Instructions: / History: Comparison: none Axial images were obtained without contrast. There is moderate diffuse atrophy. There is no mass effect, extraaxial fluid collections or hydrocep halus. There is no gross bleed. Mild, patchy periventricular and subcortical white matter hypoatten uation is seen. There is no focal loss of genao-white matter distinction to suggest acute ischemia, i .e. stroke. Impression: No acute findings. RS Compliance Statement: One or more of the following individualized dose reduction techniques were utilized for this examinat ion: 1. Automated exposure control 2. Adjustment of the mA and/or kV according to patient size 3. Use of iterative reconstruction technique Electronically signed by: Nic Burnett III, MD (03/14/2021 3:40 PM) [facility]
[2021-03-14] MEDS ORDERED: HYDR25TA PO (17:53)
== END 2021-03-14 18:13 | disposition home or self-care (01) ==
LOC: ER 14:07
DX: R25.1 Tremor, unspecified (principal); F41.9 Anxiety disorder, unspecified; K21.9 Gastro-esophageal reflux disease without esophagitis; Z88.1 Allergy status to other antibiotic agents; Z88.8 Allergy status to other drugs, medicaments and biological substances
CPT/HCPCS: 36415; 70450; 71045; 80053; 83690; 83735; 83880; 84484; 85025; 99285-25